=== PATIENT | female | born 1945 ===

== ENCOUNTER 2022-03-14 15:20 | Outpatient (CLI) | payer MEDICARE | END 2022-03-14 15:21 | disposition home or self-care (01) | LOC: CSHMRI 15:20 | PROVIDERS: ATTEND Nurse Practitioner Family | DX: M54.16 Radiculopathy, lumbar region (principal); M47.816 Spondylosis without myelopathy or radiculopathy, lumbar region; M51.36 Other intervertebral disc degeneration, lumbar region; M48.061 Spinal stenosis, lumbar region without neurogenic claudication; M48.07 Spinal stenosis, lumbosacral region | CPT/HCPCS: 72148 ==